=== PATIENT | male | born 1950 | race African-American/Black ===

== ENCOUNTER → 2018-07-05 | Outpatient (CLI) | payer MEDICARE, MEDICAID ==
[~2018-07-05] MED LIST: ALBUTEROL (0.083%) 2.5MG/3ML NEB ONE
== END | disposition home or self-care (01) ==
LOC: PF 10:52
PROVIDERS: ATTEND Specialist
DX: R91.1 Solitary pulmonary nodule (principal); R05 Cough
CPT/HCPCS: 94060; 94727; 94729; J7611

== ENCOUNTER 2023-12-23 09:26 | Inpatient (IN) | payer MEDICARE, MEDICAID ==
[~2023-12-23] VITALS: Ht 180.3 cm; Wt 78.0 kg
[2023-12-23] MEDS ORDERED: METFORMIN (09:30)
[2023-12-23] MEDS ORDERED: CRES10 PO (09:41)
[2023-12-23] MEDS ORDERED: METO-396 PO (09:41)
[2023-12-23] MEDS ORDERED: AMLO1CAP PO (09:41)
[2023-12-23] MEDS ORDERED: KETO5DRO38 EACHEYE (09:41)
[2023-12-23] MEDS ORDERED: MELO-104 PO (09:41)
[2023-12-23] MEDS ORDERED: HYDR100T31 PO (09:41)
[2023-12-23 10:31] LABS: HEMATOCRIT. 38.6 % (42.0-52.0); HEMOGLOBIN. 12.1 g/dL (14.0-18.0); MEAN CORPUSCULAR HEMOGLOBIN 21.8 pg (28.0-32.0); MEAN CORPUSCULAR HGB CONC 31.4 g/dL (31.0-37.0); MEAN CORPUSCULAR VOLUME 69.4 fL (80.0-94.0); PLATELET 291 x1000/uL (130-400); RED BLOOD CELL COUNT 5.56 mill/uL (4.7-6.1); RED CELL DISTRIBUTION WIDTH 22.3 % (11.6-14.6); WHITE BLOOD COUNT 7.9 x1000/uL (4.5-11.0)
[2023-12-23 10:37] LABS: CLARITY URINE CLEAR (CLEAR); COLOR URINE YELLOW (YELLOW); GLUCOSE URINE 1+ (NEGATIVE); KETONES URINE NEGATIVE (NEGATIVE); LEUKOCYTE ESTERASE URINE NEGATIVE (NEGATIVE); NITRITE URINE NEGATIVE (NEGATIVE); OCCULT BLOOD URINE 1+ (NEGATIVE); PROTEIN URINE 1+ (NEGATIVE); SPECIFIC GRAVITY URINE 1.032 (1.005-1.030); UROBILINOGEN URINE 0.2 E.U./dL (0.2-1.0)
[2023-12-23 10:37] LABS: DIFFERENTIAL COMMENT 1
[2023-12-23 10:39] LABS: CHLORIDE 103 mEq/L (98-107); POTASSIUM 4.2 mEq/L (3.5-5.1); SODIUM 137 mEq/L (136-145)
[2023-12-23 10:40] LABS: CALCIUM 9.5 mg/dL (8.7-10.4); CARBON DIOXIDE 24 mEq/L (21-32)
[2023-12-23 10:45] LABS: CREATININE 1.1 mg/dL (0.6-1.3); GLUCOSE 133 mg/dL (70-105); UREA NITROGEN BLOOD 8 mg/dL (9-23)
[2023-12-23 10:46] LABS: TROPONIN I HIGH SENSITIVITY 15 ng/L (3.0-53)
[2023-12-23 10:47] LABS: ALANINE AMINOTRANSFERASE 14 IU/L (10-49); ALBUMIN 4.9 g/dL (3.2-4.8); ASPARTATE AMINOTRANSFERASE 46 IU/L (<34); BILIRUBIN TOTAL 1.1 mg/dL (0.1-1.0); PROTEIN TOTAL 8.5 g/dL (6.0-8.3); PROTHROMBIN TIME 10.7 sec (9.6-11.0)
[2023-12-23 10:51] LABS: *AMPHETAMINES SCREEN URINE NEGATIVE (NEGATIVE); *BARBITURATES SCREEN URINE NEGATIVE (NEGATIVE); *BENZODIAZEPINES SCREEN URINE NEGATIVE (NEGATIVE); *COCAINE SCREEN URINE NEGATIVE (NEGATIVE); METHADONE URINE SCREEN NEGATIVE (NEGATIVE); OPIATES URINE SCREEN NEGATIVE (NEGATIVE); PHENCYCLIDINE URINE SCREEN NEGATIVE (NEGATIVE)
[2023-12-23 10:52] LABS: CANNABINOID URINE SCREEN NEGATIVE (NEGATIVE); ECSTASY MDMA SCREEN URINE NEGATIVE (NEGATIVE)
[2023-12-23 10:55] LABS: ANISOCYTOSIS 2+; MICROCYTOSIS 3+; PLATELET ESTIMATE NORMAL
[2023-12-23 11:09] LABS: RBC URINE NONE SEEN /hpf (0-2); SQUAMOUS EPITHELIAL CELL URINE RARE /lpf (RARE/1+); WBC URINE 0-2 /hpf (0-2)
[2023-12-23 11:10] LABS: BACTERIA URINE NONE SEEN
[2023-12-23] MEDS: IOHEXOL-350 100 ML BOTTLE ONE (11:38)
[2023-12-23 11:52] LABS: ETHANOL BLOOD < 10 mg/dL (<10)
[2023-12-23] MEDS ORDERED: MAGNESIUM/ALUMINUM HYDROXIDE/SIMETHICONE 30ML UDC PO PRN (14:15)
[2023-12-23] MEDS ORDERED: ACETAMINOPHEN 325MG TABLET PO PRN ×2 (14:15)
[2023-12-23] MEDS ORDERED: CLONIDINE 0.1MG TABLET PO PRN (14:15)
[2023-12-23] MEDS ORDERED: DOCUSATE SODIUM 100MG CAPSULE PO PRN (14:15)
[2023-12-23] MEDS ORDERED: ONDANSETRON HCL 4MG/2ML INJ IV PRN (14:15)
[2023-12-23] MEDS: ASPIRIN 81MG TABLET PO SCH (14:55)
[2023-12-23] MEDS: CLOPIDOGREL 75MG TABLET PO SCH (14:55)
[2023-12-23 14:58] LABS: TRIGLYCERIDE 50 mg/dL (0-150)
[2023-12-23 14:59] LABS: ALANINE AMINOTRANSFERASE 20 IU/L (10-49); LDL CHOLESTEROL 139 mg/dL (5-100)
[2023-12-23 15:00] LABS: ALBUMIN 5.2 g/dL (3.2-4.8); ASPARTATE AMINOTRANSFERASE 46 IU/L (<34); BILIRUBIN DIRECT 0.3 mg/dL (<=3.0); BILIRUBIN TOTAL 1.1 mg/dL (0.1-1.0); CHOLESTEROL 235 mg/dL (<200); HDL CHOLESTEROL 103 mg/dL (>55); PROTEIN TOTAL 9.5 g/dL (6.0-8.3)
[2023-12-23 15:02] LABS: T4 FREE 1.06 ng/dL (0.89-1.76); THYROID STIMULATING HORMONE 0.48 uIU/mL (0.55-4.78)
[2023-12-23] MEDS: SODIUM CHLORIDE 0.9% 1,000 ML IV SCH (16:30)
[2023-12-23 20:20] VITALS: BP 125/92; PULSE 89; RESP 20; TEMP 98.2
[2023-12-23] MEDS: ATORVASTATIN CALCIUM 40MG TABLET PO SCH (20:53)
[2023-12-23] MEDS ORDERED: *PATIENT'S OWN MEDICATION STORAGE XX SCH (23:00)
[2023-12-24 00:30] VITALS: BP 122/95; PULSE 96; RESP 20; TEMP 98.5
[2023-12-24 04:20] VITALS: BP 124/87; PULSE 89; RESP 19; TEMP 97.1
[2023-12-24 06:48] LABS: BASOPHILS % 0.3 % (0.0-2.0); HEMATOCRIT. 38.4 % (42.0-52.0); HEMOGLOBIN. 12.3 g/dL (14.0-18.0); LYMPHOCYTES % 42.8 % (20.0-50.0); MEAN CORPUSCULAR HEMOGLOBIN 22.2 pg (28.0-32.0); MEAN CORPUSCULAR HGB CONC 31.9 g/dL (31.0-37.0); MEAN CORPUSCULAR VOLUME 69.5 fL (80.0-94.0); MEAN PLATELET VOLUME 8.8 fl (7.4-10.4); NEUTROPHILS % 49.9 % (40.0-76.0); PLATELET 308 x1000/uL (130-400); RED BLOOD CELL COUNT 5.52 mill/uL (4.7-6.1); RED CELL DISTRIBUTION WIDTH 22.4 % (11.6-14.6); WHITE BLOOD COUNT 5.9 x1000/uL (4.5-11.0)
[2023-12-24 07:18] LABS: CARBON DIOXIDE 22 mEq/L (21-32); CHLORIDE 105 mEq/L (98-107); POTASSIUM 3.4 mEq/L (3.5-5.1); SODIUM 137 mEq/L (136-145)
[2023-12-24 07:19] LABS: CALCIUM 9.1 mg/dL (8.7-10.4)
[2023-12-24 07:29] LABS: DIFFERENTIAL COMMENT 1
[2023-12-24 08:00] VITALS: BP 137/99; PULSE 95; RESP 20; TEMP 98.1
[2023-12-24] MEDS: PANTOPRAZOLE SODIUM 40 MG/VIAL IV SCH (08:17)
[2023-12-24 08:38] LABS: CREATININE 1.2 mg/dL (0.6-1.3); IRON 41 ug/dL (65-175); UREA NITROGEN BLOOD 11 mg/dL (9-23)
[2023-12-24 08:39] LABS: GLUCOSE 105 mg/dL (70-105)
[2023-12-24 08:40] LABS: ALBUMIN 4.9 g/dL (3.2-4.8)
[2023-12-24 08:41] LABS: TOTAL IRON BINDING CAPACITY 313 ug/dl (250-425)
[2023-12-24] MEDS: POTASSIUM CHLORIDE 20MEQ TABLET SR PO NR (09:56)
[2023-12-24 12:00] VITALS: BP 132/83; PULSE 85; RESP 20; TEMP 98
[2023-12-24 15:51] VITALS: BP 130/78; PULSE 81; RESP 18; TEMP 97.9
[2023-12-24 20:00] VITALS: BP 110/78; PULSE 93; RESP 19; TEMP 97.9
[2023-12-25] VITALS: BP 134/72; PULSE 86; RESP 19; TEMP 98.2
[2023-12-25 04:00] VITALS: BP 130/62; PULSE 82; RESP 20; TEMP 97.9
[2023-12-25 07:07] LABS: CALCIUM 8.8 mg/dL (8.7-10.4); CARBON DIOXIDE 23 mEq/L (21-32); CHLORIDE 109 mEq/L (98-107); HEMATOCRIT 36.9 % (42.0-52.0); HEMOGLOBIN 11.8 g/dL (14.0-18.0); MEAN CORPUSCULAR HEMOGLOBIN 22.1 pg (28.0-32.0); MEAN CORPUSCULAR VOLUME 69.1 fL (80.0-94.0); PLATELET 257 x1000/uL (130-400); POTASSIUM 3.7 mEq/L (3.5-5.1); RED BLOOD CELL COUNT 5.34 mill/uL (4.7-6.1); RED CELL DISTRIBUTION WIDTH 22.6 % (11.6-14.6); SODIUM 140 mEq/L (136-145); WHITE BLOOD COUNT 6.1 x1000/uL (4.5-11.0)
[2023-12-25 07:12] LABS: CREATININE 1.1 mg/dL (0.6-1.3)
[2023-12-25 07:13] LABS: GLUCOSE 101 mg/dL (70-105); UREA NITROGEN BLOOD 13 mg/dL (9-23)
[2023-12-25 08:00] VITALS: BP 105/63; PULSE 80; RESP 17; TEMP 99
[2023-12-25] MEDS: AMLODIPINE 10MG TABLET PO SCH (09:21)
[2023-12-25 12:08] VITALS: BP 143/83; PULSE 73; RESP 18; TEMP 97.9
[2023-12-25 16:29] VITALS: BP 162/62; PULSE 70; RESP 18; TEMP 99.2
[2023-12-25] MEDS: GUAIFENESIN 200MG/10ML SUGAR FREE UDC PO PRN (19:52)
[2023-12-25 20:48] VITALS: BP 191/109; PULSE 108; RESP 20; TEMP 96.2
[2023-12-26] VITALS (7 sets, daily range): BP systolic 132–145; BP diastolic 76–95; PULSE 51–115; RESP 18–20; TEMP 96.9–97.8; O2SAT 97
[2023-12-26] MEDS: IPRATROPIUM/ALBUTEROL 0.5-3(2.5)MG/3ML NEB HHN PRN (01:11)
[2023-12-26] MEDS ORDERED: DIPHENHYDRAMINE 50MG/ML VIAL IV NR (02:00)
[2023-12-26] MEDS: DIPHENHYDRAMINE 25MG CAPSULE PO NR (02:08)
[2023-12-26 07:39] LABS: HEMATOCRIT 36.7 % (42.0-52.0); HEMOGLOBIN 11.6 g/dL (14.0-18.0); MEAN CORPUSCULAR HEMOGLOBIN 21.8 pg (28.0-32.0); MEAN CORPUSCULAR HGB CONC 31.5 g/dL (31.0-37.0); MEAN CORPUSCULAR VOLUME 69.3 fL (80.0-94.0); PLATELET 249 x1000/uL (130-400); RED BLOOD CELL COUNT 5.29 mill/uL (4.7-6.1); RED CELL DISTRIBUTION WIDTH 22.3 % (11.6-14.6); WHITE BLOOD COUNT 8.3 x1000/uL (4.5-11.0)
[2023-12-26 08:16] LABS: CARBON DIOXIDE 26 mEq/L (21-32); CHLORIDE 106 mEq/L (98-107); POTASSIUM 3.8 mEq/L (3.5-5.1); SODIUM 141 mEq/L (136-145)
[2023-12-26 08:17] LABS: CALCIUM 8.8 mg/dL (8.7-10.4)
[2023-12-26 08:22] LABS: CREATININE 1.1 mg/dL (0.6-1.3); GLUCOSE 103 mg/dL (70-105)
[2023-12-26 08:23] LABS: UREA NITROGEN BLOOD 8 mg/dL (9-23)
[2023-12-26] MEDS: FAMOTIDINE 20MG TABLET PO SCH (09:42)
[2023-12-27] VITALS: BP 145/84; PULSE 100; RESP 20; TEMP 97.8
[2023-12-27 04:00] VITALS: BP 154/82; PULSE 96; RESP 19; TEMP 98.2
[2023-12-27] MEDS: HYDRALAZINE HCL 100MG TABLET PO SCH (08:57)
[2023-12-27 20:00] VITALS: BP 117/68; PULSE 100; RESP 20; TEMP 97.8
[2023-12-28] VITALS: BP 115/79; PULSE 100; RESP 20; TEMP 98
[2023-12-28 04:00] VITALS: BP 114/69; PULSE 93; RESP 20; TEMP 97.8
[2023-12-28 08:00] VITALS: BP 128/76; PULSE 89; RESP 18; TEMP 98.9
[2023-12-28 12:00] VITALS: BP 134/58; PULSE 90; RESP 20; TEMP 98.9
[2023-12-28 16:00] VITALS: BP 114/76; PULSE 98; RESP 18; TEMP 97.7
[2023-12-28 21:34] VITALS: BP 126/71; PULSE 87; RESP 18; TEMP 97.6
[2023-12-29] VITALS: BP 130/64; PULSE 96; RESP 18; TEMP 97.8
[2023-12-29 04:00] VITALS: BP 129/75; PULSE 72; RESP 18; TEMP 97.6
[2023-12-29 08:00] VITALS: BP 108/63; PULSE 89; RESP 18; TEMP 98.7
[2023-12-29 12:11] VITALS: BP 160/90; PULSE 75; RESP 20; TEMP 97.9
[2023-12-29] MEDS ORDERED: HYDR100T26 PO (14:57)
[2023-12-29] MEDS ORDERED: AMLO10TA80 PO (14:57)
[2023-12-29] MEDS ORDERED: LIP40 PO (14:57)
[2023-12-29] MEDS ORDERED: CLOP-31 PO (14:57)
[2023-12-29] MEDS ORDERED: ASPI-1160 PO (14:57)
[2023-12-29 16:00] VITALS: BP 131/69; PULSE 89; RESP 18; TEMP 98.6
[2023-12-29] MEDS: HYDRALAZINE HCL 50MG TABLET PO SCH (18:24)
[2023-12-29 20:00] VITALS: BP 133/70; PULSE 94; RESP 20; TEMP 97.7
[2023-12-30] VITALS: BP 116/64; PULSE 93; RESP 20; TEMP 97.8
[2023-12-30 04:00] VITALS: BP 140/75; PULSE 90; RESP 20; TEMP 97.7
[2023-12-30 10:15] VITALS: BP 131/82; PULSE 92; RESP 20; TEMP 98.2
[2023-12-30 12:00] VITALS: BP 120/85; PULSE 92; RESP 18; TEMP 97.2
[2023-12-30] MEDS ORDERED: HYDR50TA39 PO (15:42)
[2023-12-30 16:00] VITALS: BP 129/79; PULSE 89; RESP 16; TEMP 97.4
[2023-12-30 16:31] VITALS: BP 120/85; PULSE 92; TEMP 98.2; O2SAT 97
== END 2023-12-30 19:02 | DRG 64 ==
LOC: ER 09:48 → 7WST 20:09
PROVIDERS: ADMIT Internal Medicine; ATTEND Internal Medicine
DX: I63.542 Cerebral infarction due to unspecified occlusion or stenosis of left cerebellar artery (principal); G82.50 Quadriplegia, unspecified; I16.1 Hypertensive emergency; H53.462 Homonymous bilateral field defects, left side; I25.2 Old myocardial infarction; E05.90 Thyrotoxicosis, unspecified without thyrotoxic crisis or storm; D50.9 Iron deficiency anemia, unspecified; E78.00 Pure hypercholesterolemia, unspecified; H40.9 Unspecified glaucoma; F17.210 Nicotine dependence, cigarettes, uncomplicated; R53.81 Other malaise; I10 Essential (primary) hypertension; R29.704 NIHSS score 4; R13.10 Dysphagia, unspecified; R47.1 Dysarthria and anarthria; R47.01 Aphasia; G31.9 Degenerative disease of nervous system, unspecified; E11.9 Type 2 diabetes mellitus without complications; Z79.02 Long term (current) use of antithrombotics/antiplatelets; Z79.82 Long term (current) use of aspirin; Z79.899 Other long term (current) drug therapy
CPT/HCPCS: 36415; 70496; 70498; 70551; 71045; 80048; 80053; 80061; 80076; 80305; 80320; 81003; 82040; 82728; 82962; 83036; 83540; 83550; 84439; 84443; 84484; 85025; 85027; 92523; 93005; 93306; 94640; 97110; 97162; 97166; 97530; 99291; C9113; J1200; Q0163; Q9967; G0480